=== PATIENT | male | born 1965 | race Caucasian/White ===

== ENCOUNTER 2022-08-24 15:28 | Outpatient (REF) | payer OTHER, SELFPAY ==
[2022-08-24 14:49] LABS: Abs Immature Grans 0.02 10^3/uL (0.0-0.06); Absolute Basophil Count 0.07 10^3/uL (0.0-0.2); Absolute Lymphocyte Count 0.69 10^3/uL (1.2-3.4); Absolute Monocyte Count 0.59 10^3/uL (0.1-0.8); Absolute Neutrophil Count 3.94 10^3/uL (1.2-6.7); Basophils % 1.3; Eosinophils % 3.6; HCT 30.4 % (40.0-50.0); HGB 9.8 g/dL (13.5-17.5); Immature Grans % 0.4; Lymphocytes % 12.5; MCH 28.7 pg (27.0-33.0); MCHC 32.2 % (32.0-36.0); MCV 89 fL (80-95); MPV 10.8 fL (8.0-11.0); Monocytes % 10.7; Neutrophils % 71.5; Platelet Count 222 10^3/uL (130-400); RBC 3.42 10^6/uL (4.36-5.78); RDW-SD 45.1 fL; WBC 5.51 10^3/uL (4.4-10.8)
[2022-08-24 15:17] LABS: Anion Gap 12.2 mmol/L (3-11); BUN 52 mg/dL (7-18); CO2 25.8 mmol/L (21.0-32.0); CREATININE 2.8 mg/dL (0.70-1.30); Calcium 9.6 mg/dL (8.5-10.1); Chloride 104 mmol/L (98-107); Estimated GFR 25.68 (mL/min/1.73m2); Glucose 183 mg/dL (74-106); Sodium 142 mmol/L (136-145)
[2022-08-24 15:56] LABS: Hemoglobin A1C 6.8 % (<5.7)
== END 2022-08-24 15:29 | disposition home or self-care (01) ==
LOC: NCHCN 15:28
PROVIDERS: PCP Family Medicine; Visit Provider Family Medicine
DX: E11.9 Type 2 diabetes mellitus without complications (principal); I10 Essential (primary) hypertension; I50.9 Heart failure, unspecified; I25.10 Atherosclerotic heart disease of native coronary artery without angina pectoris
CPT/HCPCS: 80048; 83036; 85025

== ENCOUNTER 2022-09-26 12:10 | Emergency (ER) | payer OTHER, SELFPAY ==
--- NOTE | 2022-09-26 12:15 | DI.RAD_ITS ---
Exam(s) XR FOOT LT COMPLETE EXAM: XR FOOT LT COMPLETE CLINICAL HISTORY: pain. TECHNIQUE: 2D digital imaging was performed. Three views. COMPARISON: No exams were available for comparison FINDINGS: BONES: No acute fracture is present. No bony destructive lesion is seen. Prominent accessory navicula r. Heel spurs. JOINTS: No dislocation present. SOFT TISSUE: Vascular calcifications. IMPRESSION: No acute abnormality. DATA REPOSITORY: RADIATION DOSE DELIVERED:
[2022-09-26 12:16] VITALS: BP 132/70; PULSE 82; RESP 18; TEMP 36.6; O2SAT 97
--- NOTE | 2022-09-26 12:29 | ED.GENADUL_ITS ---
Discharge Plan Disposition Patient Disposition: Home Condition: Stable Discharge Details Clinical Impression: Left foot pain Primary Care Provider: Sesar Simon ED Provider: Benjamin Shelton Home Meds and New Rx's Prescriptions: New prednisone 20 mg tablet 60 mg PO DAILY 4 Days Qty: 12 0RF Continued furosemide 40 mg Tablet 40 mg PO DAILY atorvastatin 80 mg Tablet 80 mg PO DAILY carvedilol 25 mg Tablet 25 mg PO BID amlodipine 10 mg Tablet 10 mg PO DAILY hydralazine 50 mg Tablet 50 mg PO TID gabapentin 100 mg Capsule 200 mg PO QHS cholecalciferol (vitamin D3) 125 mcg (5,000 unit) Capsule 125 mcg PO DAILY escitalopram oxalate 5 mg Tablet 5 mg PO DAILY Levemir FlexTouch U-100 Insuln 100 unit/mL (3 mL) Insulin Pen 48 unit SUBCUT HS icosapent ethyl [Vascepa] 1 gram Capsule 2 g PO BID insulin aspart (niacinamide) 100 unit/mL (3 mL) Insulin Pen See Rx Instructions .ROUTE .COMPLEX Rx Instructions: 28 unit subcutaneously with each meal. Up to 90 units in 24 hours. Ozempic 0.25 mg or 0.5 mg(2 mg/1.5 mL) Pen Injector 0.5 mg SUBCUT QWEEK aspirin 81 mg Capsule 81 mg PO DAILY Discharge Instructions Instructions: Plantar Fasciitis (ED) Additional Instructions: Your xray did not show concerning findings, I suspect you have fasciitis or possibly gout follow up with your primary care provider if not better this week if you feel more ill, have fevers or redness spreading up the leg return to the emergency department Medical Decision Making 57 yo male who states he has a hx of DM and ckd, comes in with left foot pain for 4 days without preceding trauma. He denies fevers, leg sweling, rashes, fevers, chills. He localizes the pain to the base of the left small toe on the plantar surgace. He has no leg swelling, normal distal sensation and pulses. He has no erythema, warmth anywhere on the foot or leg and no open wounds. There is no swelling of the toe or foot. He has full rom of the foot and ankle. Given t he lack of trauma doubt fracture but will xray to further evaluate. No findings on exam to suggest cellulitis and has no open wounds to suggest diabetic foot infection. Could be gout or plantar fascititis, given his history of ckd will avoid nsaids currently pt stable, still no warmth or erythema, xray unremarkable. Discussed with pt and advised suspect plantar fascititis vs gout. Will trial prednisone and he will f/u with his pcp, return precautions given Differential Diagnosis Differential Diagnosis: gout, plantar fascititis Imaging Data Radiologic Study: Attestation: I personally reviewed and interpreted this imaging study as follows: Imaging: X-Ray My impression: no acute findings HPI General Date/Time Provider Initiated Documentation: 09/26/22 12:11 . Limitations to Documentation: no limitations . Information obtained by: patient . History of Present Illness 57 year old M presents to the emergency department with the chief complaint of left foot pain, described as moderate, Quality is described as aching, Patient started experiencing this day(s) (4) and it has been constant. Rest improves symptom(s), Movement worsens symptoms . Patient notes no other symptoms.. Patient did receive the following treatments prior to arrival, none and other (tylenol) Related Data Home Medications Medication Instructions Recorded Confirmed amlodipine 10 mg tablet 10 mg PO DAILY 09/26/22 09/26/22 aspirin 81 mg capsule 81 mg PO DAILY 09/26/22 09/26/22 atorvastatin 80 mg tablet 80 mg PO DAILY 09/26/22 09/26/22 carvedilol 25 mg tablet 25 mg PO BID 09/26/22 09/26/22 cholecalciferol (vitamin D3) 125 125 mcg PO DAILY 09/26/22 09/26/22 mcg (5,000 unit) capsule escitalopram oxalate 5 mg tablet 5 mg PO DAILY 09/26/22 09/26/22 furosemide 40 mg tablet 40 mg PO DAILY 09/26/22 09/26/22 gabapentin 100 mg capsule 200 mg PO QHS 09/26/22 09/26/22 hydralazine 50 mg tablet 50 mg PO TID 09/26/22 09/26/22 icosapent ethyl 1 gram capsule 2 g PO BID 09/26/22 09/26/22 (Vascepa) insulin aspart See Rx Instructions .Route .COMPLEX 09/26/22 09/26/22 (niacinamide)(U-100) 100 unit/mL(3 mL) subcutaneous pen insulin detemir U-100 100 unit/mL 48 unit subcut HS 09/26/22 09/26/22 (3 mL) subcutaneous pen (Levemir FlexTouch U-100 Insulin) prednisone 20 mg tablet 60 mg PO DAILY 4 days #12 tabs 09/26/22 semaglutide 0.25 mg or 0.5 mg (2 0.5 mg subcut QWEEK 09/26/22 09/26/22 mg/1.5 mL) subcutaneous pen injector (Ozempic) Previous Rx's Medication Instructions Recorded prednisone 20 mg tablet 60 mg PO DAILY 4 days #12 tabs 09/26/22 Allergies Allergy/AdvReac Type Severity Reaction Status Date / Time No Known Allergies Allergy Unverified 09/26/22 12:20 General Stated Complaint: Cellulitis YOVANNY: 3 Review of Systems All systems reviewed & are unremarkable except as noted in HPI and below Constitutional Constitutional: Denies chills, Denies fever(s) and Denies weakness Cardiovascular Cardiovascular: Denies chest pain and Denies dyspnea Respiratory Respiratory: Denies cough and Denies dyspnea Gastrointestinal Gastrointestinal: Denies abdominal pain, Denies nausea and Denies vomiting Musculoskeletal Musculoskeletal: Denies joint swelling Integumentary/Breasts Skin/Breast: Denies rash Neurologic Neurologic: Denies weakness PFSH All Active Problems (Updated 09/26/22 @ 13:14 by Benjamin Shelton MD) Left foot pain (Acute) Social History Smoking/Tobacco Use Status: Never Smoking risk assessment performed?: Yes Alcohol Intake: current Alcohol Intake frequency: holidays/special occasions only Drug use: Never Substance use type: does not use Exam Const General: no acute distress Orientation: alert HENMT Head: normal to inspection Ears: external ears normal General nose exam: external nose normal Mouth: moist mucous membranes Eyes General: appearance normal, both eyes and all related structures Neck Neck: normal visual inspection Resp Effort & Inspection: normal respiratory effort and able to speak in complete sentences Cardio Rate: regular rate Skin General skin exam: no rashes or lesions noted Neuro General: patient alert and patient oriented x3 Extrem General: normal to inspection, full ROM and capillary refill normal Psych Mental Status: mental status grossly normal Course Vital Signs Vital signs: Vital Signs Temperature 36.6 C 09/26/22 12:16 Pulse 82 09/26/22 12:16 Respiratory Rate 18 09/26/22 12:16 Blood Pressure 132/70 09/26/22 12:16 Pulse Oximetry 97 09/26/22 12:16 Temperature 36.6 C 09/26/22 12:16 Temperature Source Temporal Artery Scan 09/26/22 12:16 Pulse 82 09/26/22 12:16 Respiratory Rate 18 09/26/22 12:16 Respiratory Effort Non-Labored 09/26/22 12:21 Blood Pressure 132/70 09/26/22 12:16 Blood Pressure Position Sitting 09/26/22 12:16 Pulse Oximetry 97 09/26/22 12:16 Oxygen Delivery Method Room Air 09/26/22 12:16 Oxygen Flow Rate 0 09/26/22 12:16 PAWSS Have you Been Recently Intoxicated or Drunk Within the Last 30 days?: No Have you Ever Experienced Previous Episodes of Alcohol Withdrawal?: No Have you ever Experienced Withdrawal Seizures?: No Have you ever Experienced Delirium Tremens(DT)s?: No Have you ever undergone Alcohol Rehabilitation Treatment (i.e, inpt ot outpatient treatment programs)?: No Have you ever Experienced Blackouts?: No Have you ever Combined Alcohol with other Downers within the last 90 days?: No Have you ever Combined Alcohol with any other Substance of Abuse during the last 90 days?: No Positive Blood Alcohol level on Presentation? [PCS.BAL]: No Evidence of Increased Autonomic Activity (i.e. HR>120, tremor, sweating, agitation, nausea)?: No Result: 0
[2022-09-26] MEDS: Diclofenac 1% Gel 100 GM TUBE TP (12:45)
--- NOTE | 2022-09-26 12:56 | DI.VRAD_ITS ---
PROCEDURE INFORMATION: Exam: XR Left Foot Exam date and time: 09/26/2022 12:39 PM Age: 57 years old Clinical indication: Pain; Foot; Left TECHNIQUE: Imaging protocol: Radiologic exam of the Left foot. Views: 3 or more views. COMPARISON: No relevant prior studies available. FINDINGS: Bones/joints: There is no acute fracture or dislocation. There is no acute fracture or dislocation. There is a plantar calcaneal spur and and posterior calcaneal spur. Soft tissues: There is soft tissue swelling suspected in the forefoot. IMPRESSION: No acute fracture or dislocation. Dictated and Authenticated by: Blayne Teixeira MD. Ordering:FRENCH Alexander MD
[2022-09-26] MEDS: predniSONE 20 MG TAB 60 MG PO (13:22)
== END 2022-09-26 13:22 | disposition home or self-care (01) ==
PROVIDERS: Emergency Provider Emergency Medicine; PCP Family Medicine
DX: M79.672 Pain in left foot (principal); E11.22 Type 2 diabetes mellitus with diabetic chronic kidney disease; N18.9 Chronic kidney disease, unspecified; Z79.4 Long term (current) use of insulin
CPT/HCPCS: 99283; 73630; 99284; J7512

== ENCOUNTER 2022-12-22 13:43 | Outpatient (REF) | payer OTHER, SELFPAY ==
[2022-12-22 16:44] LABS: Abs Immature Grans 0.02 10^3/uL (0.0-0.06); Absolute Basophil Count 0.06 10^3/uL (0.0-0.2); Absolute Eosinophil Count 0.15 10^3/uL (0.0-0.7); Absolute Lymphocyte Count 0.69 10^3/uL (1.2-3.4); Absolute Monocyte Count 0.41 10^3/uL (0.1-0.8); Absolute Neutrophil Count 3.86 10^3/uL (1.2-6.7); Basophils % 1.2; Eosinophils % 2.9; HGB 11.2 g/dL (13.5-17.5); Immature Grans % 0.4; Lymphocytes % 13.3; MCH 29.2 pg (27.0-33.0); MCHC 33.9 % (32.0-36.0); MCV 86 fL (80-95); MPV 11.2 fL (8.0-11.0); Monocytes % 7.9; Neutrophils % 74.3; Platelet Count 194 10^3/uL (130-400); RBC 3.84 10^6/uL (4.36-5.78); RDW 13.9 % (11.8-14.1); RDW-SD 43.3 fL; WBC 5.19 10^3/uL (4.4-10.8)
[2022-12-22 17:03] LABS: Iron 92 ug/dL (65-175); Total Iron Binding Capacity 277 ug/dL (250-450); Transferrin Sat 33 % (20-55)
[2022-12-22 17:16] LABS: Ferritin 98 ng/mL (26-388)
[2022-12-22 17:37] LABS: Hemoglobin A1C 8.2 % (<5.7)
[2022-12-25 10:50] LABS: Erythropoietin 10.7 mIU/mL (2.6 - 18.5)
== END 2022-12-22 13:44 | disposition home or self-care (01) ==
LOC: NCHCN 13:43
PROVIDERS: PCP Family Medicine; Visit Provider Family Medicine
DX: E11.9 Type 2 diabetes mellitus without complications (principal); D63.8 Anemia in other chronic diseases classified elsewhere; N18.4 Chronic kidney disease, stage 4 (severe)
CPT/HCPCS: 82668; 82728; 83036; 83540; 83550; 85025

== ENCOUNTER 2022-12-29 02:04 | Outpatient (CLI) | payer OTHER, SELFPAY ==
[2022-12-29 22:27] LABS: Parathyroid Hormone,Intact 62 pg/mL (19-88)
== END 2022-12-29 02:05 | disposition home or self-care (01) ==
LOC: LBO 02:06
PROVIDERS: PCP Family Medicine; Visit Provider Family Medicine
DX: E20.9 Hypoparathyroidism, unspecified (principal)
CPT/HCPCS: 36415; 83970

== ENCOUNTER 2023-02-23 01:41 | Outpatient (CLI) | payer OTHER, SELFPAY ==
--- NOTE | 2023-02-23 | DI.RAD_ITS ---
Exam(s) XR SHOULDER LT COMPLETE 2+V EXAM: XR SHOULDER LT COMPLETE 2+V CLINICAL HISTORY: LT SHOULDER PAIN, M25.512, NECK PAIN. TECHNIQUE: 2D digital imaging was performed of the left shoulder. Five images were obtained. AP, G rashey, Y-view and axillary views were obtained. COMPARISON: No exams were available for comparison FINDINGS: BONES: No acute fracture is present. No bony destructive lesion is seen. JOINTS: No dislocation present. The joint spaces are well maintained. SOFT TISSUE: Normal. IMPRESSION: Unremarkable radiographs of the left shoulder. DATA REPOSITORY: RADIATION DOSE DELIVERED:
--- NOTE | 2023-02-23 | DI.RAD_ITS ---
Exam(s) XR SHOULDER RT COMPLETE 2+V EXAM: XR SHOULDER RT COMPLETE 2+V CLINICAL HISTORY: RT SHOULDER PAIN, M25.511, NECK PAIN. TECHNIQUE: 2D digital imaging was performed of the right shoulder. Five images were obtained. AP, Grashey, Y-view and axillary views were obtained. COMPARISON: No exams were available for comparison FINDINGS: BONES: No acute fracture is present. No bony destructive lesion is seen. JOINTS: No dislocation present. SOFT TISSUE: Mild atherosclerosis. IMPRESSION: Unremarkable radiographs of the right shoulder. DATA REPOSITORY: RADIATION DOSE DELIVERED:
--- NOTE | 2023-02-23 10:30 | DI.RAD_ITS ---
Exam(s) XR CERVICAL SPINE COMP 4-5V EXAM: XR CERVICAL SPINE COMP 4-5V CLINICAL HISTORY: CHRONIC NECK PAIN,M54.2,SHOULDER PAIN, M25.512. TECHNIQUE: 2D digital imaging was performed. Six images were obtained. AP, odontoid, lateral and rula ateral oblique images were obtained. COMPARISON: No exams were available for comparison FINDINGS: The odontoid is intact. The lateral masses are well aligned. There is straightening of the normal ce rvical lordosis. This may be due to muscle spasm or patient positioning. There is mild narrowing of the disc spaces at C5-6, C6-7 and C7-T1. There are endplate osteophytes seen at C5-6 and C6-C7. No acute fracture or subluxation is present. There is neural foraminal narrowing on the right at C5-6 an d to a lesser degree at C3-4 and C4-C5. And on the left there is narrowing of the neural foramen at C6-C7. The cervical thoracic junction is well maintained. Atherosclerosis is present. Lung apices ar e clear. IMPRESSION: Degenerative changes in the cervical spine. DATA REPOSITORY: RADIATION DOSE DELIVERED:
== END 2023-02-23 02:01 ==
LOC: DI 01:42
PROVIDERS: PCP Family Medicine; Visit Provider Family Medicine
DX: M50.30 Other cervical disc degeneration, unspecified cervical region (principal); M25.512 Pain in left shoulder; M25.511 Pain in right shoulder
CPT/HCPCS: 72050; 73030